=== PATIENT | male | born 1985 | race Caucasian/White ===

== ENCOUNTER 2017-01-26 12:18 | Inpatient (IN) | payer OTHER ==
[2017-01-26 15:33] VITALS: BMI 19.8
--- NOTE | 2017-01-26 18:34 | HP ---
COWS - Scale Resting Pulse: 1= [place] 81-100 Sweatin= Chills/Flushing Restless Observation: 3= Extraneous Movement Pupil Size: 0= Normal to Room Light Bone or Joint Aches: 2= Severe Diffuse Aches Runny Nose/ Eye Tearin= Nasal Congestion GI Upset > 30mins: 2= Nausea/Diarrhea Tremor Observation: 2= Slight Tremor Visible Yawning Observation: 0= None Anxiety or Irritability: 2=Irritable/Anxious Goose Flesh Skin: 0=Smooth Skin COWS Score: 14 Admission [facility] Chief Complaint: withdrawal sx Allergies/Adverse Reactions: Allergies Allergy/AdvReac Type Severity Reaction Status Date / Time shellfish derived Allergy Severe Swelling Verified 01/26/17 17:13 NKDA Allergy Uncoded 01/26/17 18:05 History of Present Illness: 31 years old male with long history of opiate alcohol nicotine cocaine dependence has asthma and weight loss gerd and depression is admitted to detox Exam Limitations: No Limitations - Ebola screening Have you traveled outside of the country in the last 21 days: No (N) Have you had contact with anyone from an Ebola affected area: No Have you been sick,other than usual withdrawal symptoms: No Do you have a fever: No - Review of Systems Constitutional: Loss of Appetite, Changes in sleep, Unintentional Wgt. Loss EENT: reports: Blurred Vision (need eye glasses), Nose Congestion Respiratory: reports: Productive cough (whitish) Cardiac: reports: No Symptoms Reported GI: reports: Nausea, Poor Appetite, Poor Fluid Intake, Indigestion, Abdominal cramping : reports: No Symptoms Reported Musculoskeletal: reports: Back Pain, Joint Pain, Muscle Pain, Neck Pain Integumentary: reports: Change in Color (iv heroin both arms) Neuro: reports: Tremors Endocrine: reports: No Symptoms Reported Hematology: reports: No Symptoms Reported Psychiatric: reports: Judgement Intact, Orientated x3, Anxious, Depressed Other Systems: Reviewed and Negative Patient History - Patient Medical History Hx Anemia: No Hx Asthma: Yes Hx Chronic Obstructive Pulmonary Disease (COPD): No Hx Cancer: No Hx Cardiac Disorders: No Hx Congestive Heart Failure: No Hx Hypertension: No Hx Hypercholesterolemia: No Hx Pacemaker: No HX Cerebrovascular Accident: No Hx Seizures: No Hx Dementia: No Hx Diabetes: No Hx Gastrointestinal Disorders: No Hx Liver Disease: No Hx Genitourinary Disorders: No Hx Sexually Transmitted Disorders: No Hx Renal Disease (ESRD): No Hx Thyroid Disease: No Hx Human Immunodeficiency Virus (HIV): No Hx Hepatitis C: No Hx Depression: Yes Hx Suicide Attempt: No Hx Bipolar Disorder: No Hx Schizophrenia: No - Patient Surgical History Past Surgical History: No Hx Neurologic Surgery: No Hx Cataract Extraction: No Hx Cardiac Surgery: No Hx Lung Surgery: No Hx Breast Surgery: No Hx Breast Biopsy: No Hx Abdominal Surgery: No Hx Appendectomy: No Hx Cholecystectomy: No Hx Genitourinary Surgery: No Hx Orthopedic Surgery: No - PPD History Previous Implant?: Yes Documented Results: Negative w/o proof Implanted On Prior [facility] Admission?: No PPD to be Administered?: Yes - Smoking Cessation Smoking history: Current every day smoker Have you smoked in the past 12 months: Yes Aproximately how many cigarettes per day: 20 Cigars Per Day: 0 Hx Chewing Tobacco Use: No Initiated information on smoking cessation: Yes 'Breaking Loose' booklet given: 01/26/17 - Substance & Tx. History Hx Alcohol Use: Yes Hx Substance Use: Yes Substance Use Type: Alcohol, Cocaine, Opiates Hx Substance Use Treatment: No - Substances Abused Heroin Route: Injection Frequency: Daily Amount used: 10 bags Age of first use: 30 Date of Last Use: 01/26/17 Crack Route: Smoking Frequency: 3-6 times per week Amount used: $40 Age of first use: 30 Date of Last Use: 01/25/17 K2 Route: Smoking Frequency: Daily Amount used: $15-20 Age of first use: 27 Date of Last Use: 01/25/17 Alcohol-beer/vodka Route: Oral Frequency: Daily Amount used: 2-6 pks./1-2 pts Age of first use: 15 Date of Last Use: 01/25/17 Family Disease History - Family Disease History Family Disease History: Diabetes: Mother, Other: Father (no contact) Admission Physical Exam BHS - Vital Signs Vital Signs: Vital Signs - 24 hr 01/26/17 15:20 Temperature 97.5 F L Pulse Rate 86 Respiratory 20 Rate Blood Pressure 141/82 - Physical General Appearance: Yes: Appropriately Dressed, Mild Distress, Thin, Tremorous, Irritable, Sweating, Anxious HEENTM: Yes: Hearing grossly Normal, Normal ENT Inspection, Normocephalic, Normal Voice Respiratory: Yes: Chest Non-Tender, Lungs Clear, No Respiratory Distress, No Accessory Muscle Use Neck: Yes: Supple, Trachea in good position Breast: Yes: Breasts Symetrical Cardiology: Yes: Regular Rhythm, Regular Rate, S1, S2 Abdominal: Yes: Non Tender, Soft, Increased Bowel Sounds Genitourinary: Yes: Within Normal Limits Back: Yes: Normal Inspection Musculoskeletal: Yes: full range of Motion, Gait Steady, Back pain, Muscle Pain Extremities: Yes: Normal Inspection (iv opiate both arms), Normal Range of Motion, Non-Tender, Tremors Neurological: Yes: Fully Oriented, Alert, Motor Strength 5/5, Normal Response, Depressed Affect Integumentary: Yes: Warm, Track [place] Lymphatic: Yes: Within Normal Limits - Diagnostic (1) Alcohol dependence with uncomplicated withdrawal Current Visit: Yes Status: Acute (2) Opioid dependence with withdrawal Current Visit: Yes Status: Acute (3) Cocaine dependence, uncomplicated Current Visit: Yes Status: Chronic (4) GERD (gastroesophageal reflux disease) Current Visit: Yes Status: Chronic Qualifiers: Esophagitis presence: without esophagitis Qualified Code(s): K21.9 - Gastro -esophageal reflux disease without esophagitis (5) Weight loss Current Visit: Yes Status: Acute (6) Asthma Current Visit: Yes Status: Chronic Qualifiers: Asthma severity: mild Asthma persistence: intermittent Asthma complication type: with status asthmaticus Qualified Code(s): J45.22 - Mild intermittent asthma with status asthmaticus (7) Depression (emotion) Current Visit: Yes Status: Suspected Qualifiers: Depression Type: dysthymia Qualified Code(s): F34.1 - Dysthymic disorder Cleared for Admission [facility] - Detox or Rehab [facility] Level of Care: Medically Managed Detox Regimen/Protocol: Methadone/Librium [facility] Breath Alcohol Content Breath Alcohol Content: 0 Urine Drug Screen - Results Drug Screen Negative: No Urine Drug Screen Results: KAREEM-Cocaine, OPI-Opiates
[2017-01-26] MEDS ORDERED: P-EPHED 60MG/TRIPROLIDI 2.5MG TABLET PO PRN (18:45)
[2017-01-26] MEDS ORDERED: MAGNESIUM CITRATE 300 ML BOTTLE PO PRN (18:45)
[2017-01-26] MEDS ORDERED: guaiFENesin/D-METHORPHAN HB 10 ML UNIT-DOSE CUPS PO PRN (18:45)
[2017-01-26] MEDS ORDERED: ACETAMINOPHEN 325 MG TABLET (FP) PO PRN (18:45)
[2017-01-26] MEDS ORDERED: MAGNESIUM HYDROX 2400MG/30ML ORAL SUSPENSION 30 ML CUP PO PRN (18:45)
[2017-01-26] MEDS ORDERED: MAG HYDROX/AL HYDROX/SIMETH 30 ML UNIT-DOSE CUP PO PRN (18:45)
[2017-01-26] MEDS ORDERED: METHADONE HCL 10 MG TABLET (FOR DETOX USE ONLY) PO ONE ×2 (18:45→23:00)
[2017-01-26] MEDS ORDERED: NICOTINE POLACRILEX 4 MG GUM BC PRN (18:45)
[2017-01-26] MEDS ORDERED: LOPERAMIDE HCL 2 MG CAPSULE PO PRN (18:45)
[2017-01-26] MEDS ORDERED: chlordiazePOXIDE HCL 25 MG CAPSULE PO PRN (18:45)
[2017-01-26] MEDS ORDERED: MENTHOL/PHENOL 1 EACH UD MM PRN (18:45)
[2017-01-26] MEDS ORDERED: ALBUTEROL SO4 18 GM HFA INHALER IH PRN (18:47)
[2017-01-26] MEDS ORDERED: BACLOFEN 10 MG TABLET (FP) PO PRN (18:48)
[2017-01-26] MEDS: cloNIDine HCL 0.1 MG TABLET PO PRN (19:52)
[2017-01-26] MEDS: RANITIDINE HCL 150 MG TABLET (FP) PO SCH ×2 (19:52→22:44)
[2017-01-26 22:34] LABS: URINE APPEARANCE CLEAR; URINE BILIRUBIN NEGATIVE (NEGATIVE); URINE BLOOD NEGATIVE (NEGATIVE); URINE COLOR YELLOW; URINE GLUCOSE (UA) NEGATIVE (NEGATIVE); URINE KETONE NEGATIVE (NEGATIVE); URINE NITRITE NEGATIVE (NEGATIVE); URINE PROTEIN NEGATIVE (NEGATIVE); URINE UROBILINOGEN NEGATIVE mg/dL (0.2-1.0)
[2017-01-26] MEDS: chlordiazePOXIDE HCL 25 MG CAPSULE PO SCH (22:44)
[2017-01-26] MEDS: THIAMINE HCL 100 MG TABLET (FP) PO SCH (22:44)
[2017-01-27] MEDS: chlordiazePOXIDE HCL 25 MG CAPSULE PO SCH ×4 (05:52→22:14)
[2017-01-27] MEDS ORDERED: METHADONE HCL 10 MG TABLET (FOR DETOX USE ONLY) PO SCH (10:00)
[2017-01-27] MEDS: PRENATAL VITAMINS W/ FOLIC ACID TABLET (FP) PO SCH (10:19)
[2017-01-27] MEDS: RANITIDINE HCL 150 MG TABLET (FP) PO SCH ×2 (10:19→22:14)
[2017-01-27] MEDS: cloNIDine HCL 0.1 MG TABLET PO PRN ×2 (10:21→22:17)
[2017-01-27 10:29] LABS: MCH 28.5 pg (25.7-33.7); MCHC 32.8 g/dl (32.0-35.9); MEAN CELL VOLUME 86.9 fl (80-96); MEAN PLT VOLUME 10.9 fl (7.5-11.1); PLATELET COUNT 215 K/MM3 (134-434); RDW 13.6 % (11.9-15.9); WHITE BLOOD COUNT 8.1 K/mm3 (4.0-10.0)
[2017-01-27 10:52] LABS: ALBUMIN 3.8 g/dl (3.4-5.0); ALK PHOS 91 U/L (45-117); ANION GAP 5 (8-16); BILIRUBIN,TOTAL 0.5 mg/dL (0.2-1.0); CALCIUM 9.3 mg/dL (8.5-10.1); CO2 29 mmol/L (21-32); GLUCOSE,RANDOM 101 mg/dL (74-106); SGOT/AST 13 U/L (15-37); SGPT/ALT 20 U/L (12-78); TOT PROT 7.4 g/dl (6.4-8.2)
[2017-01-27] MEDS: NICOTINE 21 MG/24 HOURS TOPICAL PATCH TD SCH (10:57)
[2017-01-27 11:11] LABS: URINE LEUK ESTERASE Negative (NEGATIVE)
[2017-01-27 11:27] LABS: HIV 1 & 2 AB NEGATIVE; HIV 1 AGp24 NEGATIVE
[2017-01-27] MEDS: CYCLOBENZAPRINE HCL 10 MG TABLET (FP) PO PRN (11:31)
[2017-01-27] MEDS ORDERED: FLU VACCINE QUAD 60 MCG/0.5 ML (MDV 17-18) IM ONE (12:00)
--- NOTE | 2017-01-27 12:37 | EKG ---
Test Reason : Blood Pressure : / mmHG Vent. Rate : 079 BPM Atrial Rate : 079 BPM P-R Int : 140 ms QRS Dur : 086 ms QT Int : 376 ms P-R-T Axes : 079 084 061 degrees QTc Int : 431 ms NORMAL SINUS RHYTHM NORMAL ECG NO PREVIOUS ECGS AVAILABLE Confirmed by DEBBIE ELLER MD ([id number]) on 01/27/2017 12:37:34 PM Referred By: Confirmed By:DEBBIE ELLER MD
--- NOTE | 2017-01-27 14:06 | CONSULT ---
[facility] Psychiatric Consult - Data Date of interview: 01/27/17 Admission source: [facility] Identifying data: This is 31 years old male with no psychiatric hospitalization history iontoxicated with: Alcohol Opioids, Cocaine, K2, Nicotine Substance Abuse History: - Smoking Cessation. Smoking history: Current every day smoker. Have you smoked in the past 12 months: Yes. Aproximately how many cigarettes per day: 20. Cigars Per Day: 0. Hx Chewing Tobacco Use: No. Initiated information on smoking cessation: Yes. 'Breaking Loose' booklet given : 01/26/17. - Substance & Tx. History. Hx Alcohol Use: Yes. Hx Substance Use : Yes. Substance Use Type: Alcohol, Cocaine, Opiates. Hx Substance Use Treatment: No. - Substances Abused. Heroin. Route: Injection. Frequency: Daily. Amount used: 10 bags. Age of first use: 30. Date of Last Use: . Crack. Route: Smoking. Frequency: 3-6 times per week. Amount used: $ 40. Age of first use: 30. Date of Last Use: 01/25/17. K2. Route: Smoking. Frequency: Daily. Amount used: $15-20. Age of first use: 27. Date of Last Use: 01/25/17. Alcohol-beer/vodka. Route: Oral. Frequency: Daily. Amount used: 2-6 pks./1-2 pts. Age of first use: 15. Date of Last Use: 01/25 Medical History: GERD, Weight bloss, Asthma Psychiatric History: Patient reports history of depression, reports no medications taking prior to admission Physical/Sexual Abuse/Trauma History: Denies Additional Comment: Observation. Detox Unit Care Protocol Mental Status Exam - Mental Status Exam Alert and Oriented to: Person Cognitive Function: Fair Patient Appearance: Unkempt Mood: Sad Affect: Flat Patient Behavior: Sedated Speech Pattern: Delayed Voice Loudness: Mildly Soft/Quiet Thought Process: Circumstantial Thought Disorder: Being Controlled Hallucinations: Denies Suicidal Ideation: Denies Homicidal Ideation: Denies Insight/Judgement: Fair Sleep: Difficulty falling asleep Appetite: Weight loss Muscle strength/Tone: Normal Gait/Station: Shuffling Additional Comments: Observation. Detox Unit Care Protocol Psychiatric Findings - Problem List ([place] 1, 2,3) (1) Drug-induced mood disorder Current Visit: Yes Status: Acute (2) Alcohol dependence with uncomplicated withdrawal Current Visit: Yes Status: Acute (3) Opioid dependence with withdrawal Current Visit: Yes Status: Acute (4) Weight loss Current Visit: Yes Status: Acute (5) Cocaine dependence, uncomplicated Current Visit: Yes Status: Chronic - Initial Treatment Plan Initial Treatment Plan: Observation. Detox Unit Care Protocol
--- NOTE | 2017-01-27 19:02 | PN ---
BHS COWS - Scale Resting Pulse: 1= [place] 81-100 Sweatin= Chills/Flushing Restless Observation: 1= Difficult to Sit Still Pupil Size: 0= Normal to Room Light Bone or Joint Aches: 2= Severe Diffuse Aches Runny Nose/ Eye Tearin= None GI Upset > 30mins: 2= Nausea/Diarrhea Tremor Observation of Outstretched Hands: 2= Slight Tremor Visible Yawning Observation: 1= 1-2x During Session Anxiety or Irritability: 2=Irritable/Anxious Goose Flesh Skin: 3=Piloerection COWS Score: 15 BHS Progress Note (SOAP) Subjective: Nausea, Tremors, Body Aches, Sweating, Interrupted Sleep. Objective: PT. A & O X 2 (UNCERTAIN ABOUT DAY / DATE). NO ACUTE DISTRESS. 01/27/17 19:03 Vital Signs Temperature 97.9 F 01/27/17 17:10 Pulse Rate 69 01/27/17 17:10 Respiratory Rate 16 01/27/17 17:10 Blood Pressure 95/67 01/27/17 17:10 O2 Sat by Pulse Oximetry (%) Laboratory Tests 01/26/17 01/27/17 01/27/17 19:12 04:00 04:00 WBC 8.1 RBC 5.05 Hgb 14.4 Hct 43.9 MCV 86.9 MCH 28.5 MCHC 32.8 RDW 13.6 Plt Count 215 MPV 10.9 Sodium 140 Potassium 4.6 Chloride 106 Carbon Dioxide 29 Anion Gap 5 L BUN 7 Creatinine 1.0 Creat Clearance w eGFR > 60 Random Glucose 101 Calcium 9.3 Total Bilirubin 0.5 AST 13 L ALT 20 Alkaline Phosphatase 91 Total Protein 7.4 Albumin 3.8 Urine Color Yellow Urine Appearance Clear Urine pH 8.0 Ur Specific [place] 1.016 Urine Protein Negative Urine Glucose (UA) Negative Urine Ketones Negative Urine Blood Negative Urine Nitrite Negative Urine Bilirubin Negative Urine Urobilinogen Negative Ur Leukocyte Esterase Negative RPR Titer HIV 1&2 Antibody Screen HIV P24 Antigen 01/27/17 01/27/17 04:00 07:00 WBC RBC Hgb Hct MCV MCH MCHC RDW Plt Count MPV Sodium Potassium Chloride Carbon Dioxide Anion Gap BUN Creatinine Creat Clearance w eGFR Random Glucose Calcium Total Bilirubin AST ALT Alkaline Phosphatase Total Protein Albumin Urine Color Urine Appearance Urine pH Ur Specific [place] Urine Protein Urine Glucose (UA) Urine Ketones Urine Blood Urine Nitrite Urine Bilirubin Urine Urobilinogen Ur Leukocyte Esterase RPR Titer Nonreactive HIV 1&2 Antibody Screen Negative HIV P24 Antigen Negative LABS NOTED. Assessment: 01/27/17 19:03 WITHDRAWAL SYMPTOMS. Plan: CONTINUE DETOX. INCREASE DAILY PO FLUID INTAKE. ENCOURAGE AMBULATION.
--- NOTE | 2017-01-27 19:12 | PN ---
S CIWA - CIWA Score Nausea/Vomitin Muscle Tremors: 3 Anxiety: 3 Agitation: 2 Paroxysmal Sweats: 3 Orientation: 2-Disoriented Date<2 days Tacttile Disturbances: 1-Very Mild Itch/Numbness Auditory Disturbances: 0-None Visual Disturbances: 0-None Headache: 0-None Present CIWA-Ar Total Score: 17 BHS Progress Note (SOAP) Subjective: THE ABOVE CIWA ASSESSMENT BELONGS TO NOTE FOR MEDICAL PROVIDER ASSESSMENT DONE ON 01/27/2017.
[2017-01-27] MEDS: THIAMINE HCL 100 MG TABLET (FP) PO SCH (22:14)
[2017-01-28] MEDS: chlordiazePOXIDE HCL 25 MG CAPSULE PO SCH ×3 (05:43→17:19)
[2017-01-28] MEDS: PRENATAL VITAMINS W/ FOLIC ACID TABLET (FP) PO SCH (10:37)
[2017-01-28] MEDS: RANITIDINE HCL 150 MG TABLET (FP) PO SCH ×2 (10:37→22:04)
[2017-01-28] MEDS: METHADONE HCL 5 MG TABLET (FOR DETOX USE ONLY) PO SCH (10:37)
[2017-01-28] MEDS: NICOTINE 21 MG/24 HOURS TOPICAL PATCH TD SCH (10:37)
[2017-01-28] MEDS: cloNIDine HCL 0.1 MG TABLET PO PRN ×2 (10:37→17:21)
--- NOTE | 2017-01-28 15:24 | PN ---
BHS Progress Note (SOAP) Subjective: Sweating, Tremors, Interrupted Sleep, Diarrhea, Body Aches. Objective: PT. A & O X 2 (UNCERTAIN ABOUT DAY / DATE). PT. OBSERVED AMBULATING ON UNIT. NO ACUTE DISTRESS. 01/28/17 15:21 Vital Signs Temperature 98.3 F 01/28/17 13:46 Pulse Rate 94 H 01/28/17 13:46 Respiratory Rate 20 01/28/17 13:46 Blood Pressure 114/83 01/28/17 13:46 O2 Sat by Pulse Oximetry (%) Laboratory Tests 01/26/17 01/27/17 01/27/17 19:12 04:00 04:00 WBC 8.1 RBC 5.05 Hgb 14.4 Hct 43.9 MCV 86.9 MCH 28.5 MCHC 32.8 RDW 13.6 Plt Count 215 MPV 10.9 Sodium 140 Potassium 4.6 Chloride 106 Carbon Dioxide 29 Anion Gap 5 L BUN 7 Creatinine 1.0 Creat Clearance w eGFR > 60 Random Glucose 101 Calcium 9.3 Total Bilirubin 0.5 AST 13 L ALT 20 Alkaline Phosphatase 91 Total Protein 7.4 Albumin 3.8 Urine Color Yellow Urine Appearance Clear Urine pH 8.0 Ur Specific [place] 1.016 Urine Protein Negative Urine Glucose (UA) Negative Urine Ketones Negative Urine Blood Negative Urine Nitrite Negative Urine Bilirubin Negative Urine Urobilinogen Negative Ur Leukocyte Esterase Negative RPR Titer HIV 1&2 Antibody Screen HIV P24 Antigen 01/27/17 01/27/17 04:00 07:00 WBC RBC Hgb Hct MCV MCH MCHC RDW Plt Count MPV Sodium Potassium Chloride Carbon Dioxide Anion Gap BUN Creatinine Creat Clearance w eGFR Random Glucose Calcium Total Bilirubin AST ALT Alkaline Phosphatase Total Protein Albumin Urine Color Urine Appearance Urine pH Ur Specific [place] Urine Protein Urine Glucose (UA) Urine Ketones Urine Blood Urine Nitrite Urine Bilirubin Urine Urobilinogen Ur Leukocyte Esterase RPR Titer Nonreactive HIV 1&2 Antibody Screen Negative HIV P24 Antigen Negative LABS NOTED. Assessment: 01/28/17 15:22 WITHDRAWAL SYMPTOMS. Plan: CONTINUE DETOX. INCREASE DAILY PO FLUID INTAKE.
--- NOTE | 2017-01-28 15:27 | PN ---
[facility] CIWA - CIWA Score Nausea/Vomitin-No Nausea/No Vomiting Muscle Tremors: 3 Anxiety: 4-Mod. Anxious/Guarded Agitation: 4-Moderately Restless Paroxysmal Sweats: 2 Orientation: 2-Disoriented Date<2 days Tacttile Disturbances: 2-Mild Itch/Numbness/Burn Auditory Disturbances: 2-Mild Harshness/Frighten Visual Disturbances: 0-None Headache: 0-None Present CIWA-Ar Total Score: 19 [facility] COWS - Scale Resting Pulse: 1= [place] 81-100 Sweatin= Chills/Flushing Restless Observation: 1= Difficult to Sit Still Pupil Size: 0= Normal to Room Light Bone or Joint Aches: 2= Severe Diffuse Aches Runny Nose/ Eye Tearin= None GI Upset > 30mins: 2= Nausea/Diarrhea Tremor Observation of Outstretched Hands: 2= Slight Tremor Visible Yawning Observation: 1= 1-2x During Session Anxiety or Irritability: 4=Extreme Anxiety Goose Flesh Skin: 0=Smooth Skin COWS Score: 14 [facility] Progress Note (SOAP) Subjective: NOTE: THE ABOVE COWS / CIWA ASSESSMENTS PERTAIN TO MEDICAL PROVIDER SOAP NOTE DONE FOR 01/28/2017. Alexa Cardoso NP
--- NOTE | 2017-01-28 15:58 | PN ---
Psychiatric Progress Note Vital Signs: Vital Signs Period Temp Pulse Resp BP Sys/[place] Pulse Ox Last 24 Hr 96.1 F-98.3 F 68-100 16-20 94-114/63-83 Date of Session: 01/28/17 Chief Complaint:: " I need some medications.I cannot sleep at night." HPI: Asked to see this patient to address insomnia. ROS: Unremarkable. Current Medications: Active Medications Generic Name Dose Route Start Last Admin Trade Name Freq PRN Reason Stop Dose Admin Acetaminophen 650 mg 01/26/17 18:45 Tylenol - PO Q4H PRN FEVER OR PAIN Al Hydroxide/Mg Hydroxide 30 ml 01/26/17 18:45 Mylanta Oral Suspension - PO Q6H PRN DYSPEPSIA Albuterol Sulfate 2 puff 01/26/17 18:47 Ventolin Hfa Inhaler - IH Q4H PRN ASTHMA Baclofen 10 mg 01/26/17 18:48 Lioresal - PO Q8H PRN BACK PAIN Chlordiazepoxide HCl 25 mg 01/27/17 23:00 01/28/17 10:37 Librium - PO 01/28/17 17:01 25 mg [id number] JASIEL Administration Chlordiazepoxide HCl 15 mg 01/28/17 23:00 Librium - PO 01/29/17 17:01 [id number] JASIEL Chlordiazepoxide HCl 10 mg 01/29/17 23:00 Librium - PO 01/30/17 17:01 [id number] JASIEL Chlordiazepoxide HCl 25 mg 01/26/17 18:45 01/26/17 19:52 Librium - PO 01/29/17 18:45 25 mg Q4H PRN Administration WITHDRAWAL(CONT SUBST) Clonidine 0.1 mg 01/26/17 18:47 01/28/17 10:37 Catapres - PO 0.1 mg Q6H PRN Administration WITHDRAWAL(CONT SUBST) Cyclobenzaprine HCl 10 mg 01/27/17 10:59 01/27/17 11:31 Flexeril - PO 10 mg TID PRN Administration MUSCLE SPASMS Eucalyptus/Menthol/Phenol/Sorbitol 1 each 01/26/17 18:45 Cepastat Lozenge - MM Q4H PRN SORE THROAT Guaifenesin 10 ml 01/26/17 18:45 Robitussin Dm - PO Q6H PRN COUGH Loperamide HCl 4 mg 01/26/17 18:45 Imodium - PO Q6H PRN DIARRHEA Magnesium Citrate 300 ml 01/26/17 18:45 Citroma - PO Q48H PRN CONSTIPATION Magnesium Hydroxide 30 ml 01/26/17 18:45 Milk Of Magnesia - PO DAILY PRN CONSTIPATION Methadone HCl 15 mg 01/28/17 10:00 01/28/17 10:37 Dolophine - PO 01/29/17 10:01 15 mg DAILY JASIEL Administration Methadone HCl 5 mg 01/31/17 06:00 Dolophine - PO 01/31/17 06:01 DAILY@0600 JASIEL Methadone HCl 10 mg 01/30/17 10:00 Dolophine - PO 01/30/17 10:01 DAILY JASIEL Nicotine 21 mg 01/27/17 10:00 01/28/17 10:37 Nicoderm Patch - TD 21 mg DAILY JASIEL Administration Nicotine Polacrilex 4 mg 01/26/17 18:45 Nicorette Gum - BC Q2H PRN NICOTINE REPLACEMENT RX Multivit/Folic Acid/Iron 1 tab 01/27/17 10:00 01/28/17 10:37 Vitamins ([facility]) - PO 1 tab DAILY JASIEL Administration Pseudoephedrine/Triprolidine 1 combo 01/26/17 18:45 Actifed - PO TID PRN NASAL CONGESTION Quetiapine Fumarate 100 mg 01/28/17 22:00 Seroquel - PO HS JASIEL Ranitidine HCl 150 mg 01/26/17 19:00 01/28/17 10:37 Zantac - PO 150 mg BID JASIEL Administration Thiamine HCl 100 mg 01/26/17 22:00 01/27/17 22:14 Vitamin B1 - PO 100 mg HS JASIEL Administration Medication(s) Change(s): Seroquel 100 mg po hs is added to the regimen (patient' s request).Mr Madsen has expressed his preference for this medication due to his past history of adequate response to that drug.Side effects/benefits discussed with the patient.He agrees with this careplan. Current Side Effect: No Lab tests ordered: No Lab tests reviewed: Yes Provider note:: Chart reviewed.Dr Irving' s note : appreciated.Met with patient.Doing fine except for complaint of insomnia.Sleep hygiene discussed with the patient.Seroquel is introduced to regimen with patient's informed consent.Benign hospital course.Stable mental status. Total face to face time:: 25 Mental Status Exam - Mental Status Exam Alert and Oriented to: Time, Place, Person Cognitive Function: Good Patient Appearance: Well Groomed Mood: Hopeful, Euthymic Affect: Appropriate, Normal Range Patient Behavior: Appropriate, Cooperative Speech Pattern: Clear, Appropriate Voice Loudness: Normal Thought Process: Intact, Goal Oriented Thought Disorder: Not Present Hallucinations: Denies Suicidal Ideation: Denies Homicidal Ideation: Denies Insight/Judgement: Poor Sleep: Poorly, Difficulty falling asleep Appetite: Good Muscle strength/Tone: Normal Gait/Station: Normal Psychiatric Treatment Plan - Problem List (1) Alcohol dependence with uncomplicated withdrawal Current Visit: Yes (2) Opioid dependence with withdrawal Current Visit: Yes (3) Cocaine dependence, uncomplicated Current Visit: Yes (4) Drug-induced mood disorder Current Visit: Yes (5) Insomnia Current Visit: Yes
[2017-01-28] MEDS: chlordiazePOXIDE 5 MG CAPSULE PO SCH (22:03)
[2017-01-28] MEDS: QUEtiapine FUMARATE 100 MG TABLET (FP) PO SCH (22:04)
[2017-01-28] MEDS: THIAMINE HCL 100 MG TABLET (FP) PO SCH (22:04)
[2017-01-29] MEDS: chlordiazePOXIDE 5 MG CAPSULE PO SCH ×3 (05:17→17:51)
[2017-01-29] MEDS: NICOTINE 21 MG/24 HOURS TOPICAL PATCH TD SCH (10:16)
[2017-01-29] MEDS: PRENATAL VITAMINS W/ FOLIC ACID TABLET (FP) PO SCH (10:16)
[2017-01-29] MEDS: RANITIDINE HCL 150 MG TABLET (FP) PO SCH ×2 (10:16→22:19)
[2017-01-29] MEDS: METHADONE HCL 5 MG TABLET (FOR DETOX USE ONLY) PO SCH (10:16)
[2017-01-29] MEDS: CYCLOBENZAPRINE HCL 10 MG TABLET (FP) PO PRN ×2 (10:18→22:19)
[2017-01-29] MEDS: cloNIDine HCL 0.1 MG TABLET PO PRN ×2 (10:20→17:58)
--- NOTE | 2017-01-29 15:11 | PN ---
BHS Progress Note (SOAP) Subjective: Tremors, Diarrhea, Anxious, Sweating. Objective: PT. A & O X 3, OBSERVED AMBULATING ON UNIT. NO ACUTE DISTRESS. 01/29/17 15:09 Vital Signs Temperature 96.4 F L 01/29/17 14:40 Pulse Rate 87 01/29/17 14:40 Respiratory Rate 20 01/29/17 14:40 Blood Pressure 104/67 01/29/17 14:40 O2 Sat by Pulse Oximetry (%) Laboratory Tests 01/26/17 01/27/17 01/27/17 19:12 04:00 04:00 WBC 8.1 RBC 5.05 Hgb 14.4 Hct 43.9 MCV 86.9 MCH 28.5 MCHC 32.8 RDW 13.6 Plt Count 215 MPV 10.9 Sodium 140 Potassium 4.6 Chloride 106 Carbon Dioxide 29 Anion Gap 5 L BUN 7 Creatinine 1.0 Creat Clearance w eGFR > 60 Random Glucose 101 Calcium 9.3 Total Bilirubin 0.5 AST 13 L ALT 20 Alkaline Phosphatase 91 Total Protein 7.4 Albumin 3.8 Urine Color Yellow Urine Appearance Clear Urine pH 8.0 Ur Specific [place] 1.016 Urine Protein Negative Urine Glucose (UA) Negative Urine Ketones Negative Urine Blood Negative Urine Nitrite Negative Urine Bilirubin Negative Urine Urobilinogen Negative Ur Leukocyte Esterase Negative RPR Titer HIV 1&2 Antibody Screen HIV P24 Antigen 01/27/17 01/27/17 04:00 07:00 WBC RBC Hgb Hct MCV MCH MCHC RDW Plt Count MPV Sodium Potassium Chloride Carbon Dioxide Anion Gap BUN Creatinine Creat Clearance w eGFR Random Glucose Calcium Total Bilirubin AST ALT Alkaline Phosphatase Total Protein Albumin Urine Color Urine Appearance Urine pH Ur Specific [place] Urine Protein Urine Glucose (UA) Urine Ketones Urine Blood Urine Nitrite Urine Bilirubin Urine Urobilinogen Ur Leukocyte Esterase RPR Titer Nonreactive HIV 1&2 Antibody Screen Negative HIV P24 Antigen Negative LABS NOTED. Assessment: 01/29/17 15:10 WITHDRAWAL SYMPTOMS. Plan: CONTINUE DETOX. PRN IMMODIUM FOR DIARRHEA. INCREASE DAILY PO FLUID INTAKE.
[2017-01-29] MEDS: THIAMINE HCL 100 MG TABLET (FP) PO SCH (22:19)
[2017-01-29] MEDS: chlordiazePOXIDE HCL 10 MG CAPSULE PO SCH (22:19)
[2017-01-29] MEDS: QUEtiapine FUMARATE 100 MG TABLET (FP) PO SCH (22:19)
[2017-01-30] MEDS: chlordiazePOXIDE HCL 10 MG CAPSULE PO SCH ×3 (06:18→17:10)
[2017-01-30] MEDS: cloNIDine HCL 0.1 MG TABLET PO PRN ×4 (06:25→23:25)
[2017-01-30] MEDS ORDERED: METHADONE HCL 10 MG TABLET (FOR DETOX USE ONLY) PO SCH (10:00)
[2017-01-30] MEDS: RANITIDINE HCL 150 MG TABLET (FP) PO SCH ×2 (10:22→22:18)
[2017-01-30] MEDS: PRENATAL VITAMINS W/ FOLIC ACID TABLET (FP) PO SCH (10:22)
[2017-01-30] MEDS: NICOTINE 21 MG/24 HOURS TOPICAL PATCH TD SCH (10:22)
[2017-01-30] MEDS: CYCLOBENZAPRINE HCL 10 MG TABLET (FP) PO PRN ×2 (14:01→22:18)
--- NOTE | 2017-01-30 16:26 | PN ---
BHS Progress Note (SOAP) Subjective: Sweating, anxious, interrupted sleep Objective: 01/30/17 16:26 Last Vital Signs Temp Pulse Resp BP Pulse Ox 96.8 F L 82 18 105/70 01/30/17 14:46 01/30/17 14:46 01/30/17 14:46 01/30/17 14:46 Laboratory Tests 01/26/17 01/27/17 01/27/17 19:12 04:00 04:00 WBC 8.1 RBC 5.05 Hgb 14.4 Hct 43.9 MCV 86.9 MCH 28.5 MCHC 32.8 RDW 13.6 Plt Count 215 MPV 10.9 Sodium 140 Potassium 4.6 Chloride 106 Carbon Dioxide 29 Anion Gap 5 L BUN 7 Creatinine 1.0 Creat Clearance w eGFR > 60 Random Glucose 101 Calcium 9.3 Total Bilirubin 0.5 AST 13 L ALT 20 Alkaline Phosphatase 91 Total Protein 7.4 Albumin 3.8 Urine Color Yellow Urine Appearance Clear Urine pH 8.0 Ur Specific [place] 1.016 Urine Protein Negative Urine Glucose (UA) Negative Urine Ketones Negative Urine Blood Negative Urine Nitrite Negative Urine Bilirubin Negative Urine Urobilinogen Negative Ur Leukocyte Esterase Negative RPR Titer HIV 1&2 Antibody Screen HIV P24 Antigen 01/27/17 01/27/17 04:00 07:00 WBC RBC Hgb Hct MCV MCH MCHC RDW Plt Count MPV Sodium Potassium Chloride Carbon Dioxide Anion Gap BUN Creatinine Creat Clearance w eGFR Random Glucose Calcium Total Bilirubin AST ALT Alkaline Phosphatase Total Protein Albumin Urine Color Urine Appearance Urine pH Ur Specific [place] Urine Protein Urine Glucose (UA) Urine Ketones Urine Blood Urine Nitrite Urine Bilirubin Urine Urobilinogen Ur Leukocyte Esterase RPR Titer Nonreactive HIV 1&2 Antibody Screen Negative HIV P24 Antigen Negative Labs noted Assessment: 01/30/17 16:26 Withdrawal symptoms Plan: Continue detox
[2017-01-30] MEDS: THIAMINE HCL 100 MG TABLET (FP) PO SCH (22:18)
[2017-01-30] MEDS: QUEtiapine FUMARATE 100 MG TABLET (FP) PO SCH (22:18)
[2017-01-31] MEDS: cloNIDine HCL 0.1 MG TABLET PO PRN (05:56)
[2017-01-31] MEDS ORDERED: METHADONE HCL 5 MG TABLET (FOR DETOX USE ONLY) PO SCH (06:00)
[2017-01-31 09:22] VITALS: BP 121/75; PULSE 74; TEMP 98.3
[2017-01-31] MEDS: PRENATAL VITAMINS W/ FOLIC ACID TABLET (FP) PO SCH (09:57)
[2017-01-31] MEDS: RANITIDINE HCL 150 MG TABLET (FP) PO SCH (09:57)
--- NOTE | 2017-01-31 09:59 | DS ---
[facility] Detox Discharge Summary Admission Date: 01/26/17 - History Present History: Alcohol Dependence, Cocaine Dependence, Opioid Dependence Additional Comments: DETOX COMPLETED. ALERT O X 3. NAD. PT WILL FOLLOW UP WITH PMD, DR CHETNA LOZOYA AT [facility] NEEDED. Pertinent Past History: ASTHMA GERD - Physical Exam Results Vital Signs: Vital Signs Temperature 98.3 F 01/31/17 09:22 Pulse Rate 74 01/31/17 09:22 Respiratory Rate 18 01/31/17 09:22 Blood Pressure 121/75 01/31/17 09:22 O2 Sat by Pulse Oximetry (%) Pertinent Admission Physical Exam Findings: WITHDRAWAL SX Laboratory Last Values WBC 8.1 K/mm3 (4.0-10.0) 01/27/17 04:00 RBC 5.05 M/mm3 (4.00-5.60) 01/27/17 04:00 Hgb 14.4 GM/dL (11.7-16.9) 01/27/17 04:00 Hct 43.9 % (35.4-49) 01/27/17 04:00 MCV 86.9 fl (80-96) 01/27/17 04:00 MCH 28.5 pg (25.7-33.7) 01/27/17 04:00 MCHC 32.8 g/dl (32.0-35.9) 01/27/17 04:00 RDW 13.6 % (11.9-15.9) 01/27/17 04:00 Plt Count 215 K/MM3 (134-434) 01/27/17 04:00 MPV 10.9 fl (7.5-11.1) 01/27/17 04:00 Sodium 140 mmol/L (136-145) 01/27/17 04:00 Potassium 4.6 mmol/L (3.5-5.1) 01/27/17 04:00 Chloride 106 mmol/L (98-107) 01/27/17 04:00 Carbon Dioxide 29 mmol/L (21-32) 01/27/17 04:00 Anion Gap 5 (8-16) L 01/27/17 04:00 BUN 7 mg/dL (7-18) 01/27/17 04:00 Creatinine 1.0 mg/dL (0.7-1.3) 01/27/17 04:00 Creat Clearance w eGFR > 60 (>60) 01/27/17 04:00 Random Glucose 101 mg/dL (74-106) 01/27/17 04:00 Calcium 9.3 mg/dL (8.5-10.1) 01/27/17 04:00 Total Bilirubin 0.5 mg/dL (0.2-1.0) 01/27/17 04:00 AST 13 U/L (15-37) L 01/27/17 04:00 ALT 20 U/L (12-78) 01/27/17 04:00 Alkaline Phosphatase 91 U/L (45-117) 01/27/17 04:00 Total Protein 7.4 g/dl (6.4-8.2) 01/27/17 04:00 Albumin 3.8 g/dl (3.4-5.0) 01/27/17 04:00 Urine Color Yellow 01/26/17 19:12 Urine Appearance Clear 01/26/17 19:12 Urine pH 8.0 (5.0-8.0) 01/26/17 19:12 Ur Specific [place] 1.016 (1.001-1.035) 01/26/17 19:12 Urine Protein Negative (NEGATIVE) 01/26/17 19:12 Urine Glucose (UA) Negative (NEGATIVE) 01/26/17 19:12 Urine Ketones Negative (NEGATIVE) 01/26/17 19:12 Urine Blood Negative (NEGATIVE) 01/26/17 19:12 Urine Nitrite Negative (NEGATIVE) 01/26/17 19:12 Urine Bilirubin Negative (NEGATIVE) 01/26/17 19:12 Urine Urobilinogen Negative mg/dL (0.2-1.0) 01/26/17 19:12 Ur Leukocyte Esterase Negative (NEGATIVE) 01/26/17 19:12 RPR Titer Nonreactive (NONREACTIVE) 01/27/17 04:00 HIV 1&2 Antibody Screen Negative 01/27/17 07:00 HIV P24 Antigen Negative 01/27/17 07:00 - Treatment Hospital Course: Detox Protocol Followed, Detoxed Safely, Responded well, Discharged Condition Good - Medication Discharge Medications: Ambulatory Orders Albuterol Sulfate Inhaler - [Ventolin Hfa Inhaler -] 2 inh PO Q4H PRN 01/26/17 Quetiapine Fumarate [Seroquel] 100 mg PO HS #30 tablet 01/28/17 - Diagnosis (1) Alcohol dependence with uncomplicated withdrawal Current Visit: Yes Status: Acute (2) Opioid dependence with withdrawal Current Visit: Yes Status: Acute (3) Weight loss Current Visit: Yes Status: Acute (4) Asthma Current Visit: Yes Status: Chronic Qualifiers: Asthma severity: mild Asthma persistence: intermittent Asthma complication type: uncomplicated Qualified Code(s): J45.20 - Mild intermittent asthma, uncomplicated (5) Cocaine dependence, uncomplicated Current Visit: Yes Status: Acute (6) GERD (gastroesophageal reflux disease) Current Visit: Yes Status: Chronic Qualifiers: Esophagitis presence: without esophagitis Qualified Code(s): K21.9 - Gastro -esophageal reflux disease without esophagitis (7) Nicotine dependence Current Visit: Yes Status: Acute Qualifiers: Nicotine product type: cigarettes Substance use status: in withdrawal Qualified Code(s): F17.213 - Nicotine dependence, cigarettes, with withdrawal - AMA Did Patient Leave Against Medical Advice: No
== END 2017-01-31 10:31 | disposition home or self-care (01) | DRG 773 ==
LOC: YASAS 12:18 → Y3N 18:09
PROVIDERS: ADMIT Internal Medicine; ATTEND Internal Medicine
PROC: HZ2ZZZZ Detoxification Services for Substance Abuse Treatment (ICD-10-PCS; principal; 2017-01-26)
DX: F11.23 Opioid dependence with withdrawal (principal); F10.230 Alcohol dependence with withdrawal, uncomplicated; F14.20 Cocaine dependence, uncomplicated; F17.210 Nicotine dependence, cigarettes, uncomplicated; F34.1 Dysthymic disorder; F19.24 Other psychoactive substance dependence with psychoactive substance-induced mood disorder; R63.4 Abnormal weight loss; Z68.1 Body mass index [BMI] 19.9 or less, adult; Z59.0 Homelessness
CPT/HCPCS: 36415; 80053; 81003; 85027; 86593; 86803; 87389; 90688; 93005; 93010